=== PATIENT | male | born 1985 | race Two or more races ===

== ENCOUNTER 2019-09-22 00:15 | Emergency (ER) | payer OTHER ==
[2019-09-22 00:46] VITALS: BMI 32.1
[2019-09-22] MEDS ORDERED: DIPHTH,PERTUSS(ACELL),TET 0.5 ML DISP.SYRIN IM ONE ×2 (02:27→02:38)
[2019-09-22] MEDS ORDERED: BACITRACIN 15 GM TUBE TOPICAL OINTMENT TP ONE (02:46)
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
[2019-09-22] MEDS ORDERED: BACITRACIN 0.9 GM PACKET ONE (03:14)
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
[2019-09-22 04:28] VITALS: BP 127/78; PULSE 74; TEMP 98.4
== END 2019-09-22 05:12 | disposition home or self-care (01) ==
LOC: JER 00:15
PROC: 3E0234Z Introduction of Serum, Toxoid and Vaccine into Muscle, Percutaneous Approach (ICD-10-PCS; principal; 2019-09-22)
DX: S80.211A Abrasion, right knee, initial encounter (principal)
CPT/HCPCS: 73560-TC-LT-FY; 73560-TC-RT-FY; 73590-TC-RT-FY; 90715; 99285-25

== ENCOUNTER 2019-09-24 14:07 | Emergency (ER) | payer OTHER ==
--- NOTE | 2019-09-24 14:12 | PDOC ---
Rapid Medical Evaluation Time Seen by Provider: 09/24/19 14:08 Medical Evaluation: Allergies Allergy/AdvReac Type Severity Reaction Status Date / Time No Known Allergies Allergy Verified 09/24/19 14:08 09/24/19 14:11 I have performed a brief in-person evaluation of this patient. CC: ?finding on right knee xray PE: TTP to right lateral knee Orders: CT RLE Patient to proceed to ED for further evaluation. Discharge Disposition - Diagnosis Knee pain - Referrals - Patient Instructions - Post Discharge Activity
[2019-09-24 14:14] VITALS: BP 134/82; PULSE 78; TEMP 98.3; BMI 32.1
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
== END 2019-09-24 17:00 | disposition home or self-care (01) ==
LOC: JER 14:07
DX: M25.561 Pain in right knee (principal)
CPT/HCPCS: 73700-TC-RT; 99284-25